=== PATIENT | male | born 1985 | race African-American/Black ===

== ENCOUNTER 2017-05-16 01:38 | Emergency (ER) | payer MEDICAID, OTHER ==
[~2017-05-16] VITALS: Ht 157.5 cm; Wt 87.0 kg
[2017-05-16 01:44] VITALS: BP 123/75
== END 2017-05-16 10:49 | disposition left against medical advice (07) ==
LOC: ER 01:38
DX: M25.532 Pain in left wrist (principal); Z53.21 Procedure and treatment not carried out due to patient leaving prior to being seen by health care provider